=== PATIENT | male | born 2000 | race Hispanic/Latino ===

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

== ENCOUNTER 2021-04-05 10:01 | Emergency (ER) | payer BC, OTHER ==
[~2021-04-05] VITALS: Ht 182.9 cm; Wt 138.3 kg
[~2021-04-05 10:01] MED LIST: ALLEGRA-D 24 H1 EACH PO; AZITHROMYCIN250 MG PO; NASONEX17 GM; TESSALON PERLE100 MG PO
[2021-04-05 13:38] VITALS: BP 119/86
[2021-04-05] MEDS ORDERED: ONDANSETRON ODT4 MG PO (13:39)
[2021-04-05] MEDS ORDERED: PANTOPRAZOLE SO40 MG PO (13:39)
== END 2021-04-05 13:45 | disposition home or self-care (01) ==
LOC: FSED 10:17
DX: R10.13 Epigastric pain (principal); K29.00 Acute gastritis without bleeding
CPT/HCPCS: 74176; 76705; 80048; 80076; 85025; 99283